=== PATIENT | male | born 1945 | race Asian ===

== ENCOUNTER 2020-12-11 11:40 | Outpatient (REF) | payer MEDICARE, SELFPAY | END 2020-12-11 11:41 | disposition home or self-care (01) | LOC: HO.BBR 11:40 | PROVIDERS: Visit Provider Internal Medicine Hematology & Oncology | DX: D45 Polycythemia vera (principal) | CPT/HCPCS: 36415; 85014; 85018; 99195 ==

== ENCOUNTER 2021-04-03 09:52 | Outpatient (REF) | payer MEDICARE, SELFPAY | END 2021-04-03 09:53 | disposition home or self-care (01) | LOC: HO.BBR 09:52 | PROVIDERS: Visit Provider Internal Medicine Hematology & Oncology | DX: D45 Polycythemia vera (principal) | CPT/HCPCS: 85018; 99195 ==

== ENCOUNTER 2021-05-13 12:48 | Outpatient (REF) | payer MEDICARE, SELFPAY | END 2021-05-13 12:49 | disposition home or self-care (01) | LOC: HO.BBR 12:48 | PROVIDERS: Visit Provider Internal Medicine Hematology & Oncology | DX: D75.1 Secondary polycythemia (principal) | CPT/HCPCS: 85018; 99195 ==